=== PATIENT | female | born 1940 | race Caucasian/White ===

== ENCOUNTER 2018-10-26 09:58 | Emergency (ER) | payer MEDICARE, MEDICAID ==
[~2018-10-26] VITALS: Ht 167.6 cm; Wt 49.9 kg
[2018-10-26] MEDS ORDERED: NS IV 1000 ML 1,000 ML IV SCH (10:03)
--- NOTE | 2018-10-26 10:10 | ED General ---
General Stated Complaint: NAUSEA; VOMITING Source of Information: Patient Exam Limitations: Other (nonverbal at baseline) History of Present Illness Date Seen by Provider: Oct 26, 2018 Time Seen by Provider: 09:55 Initial Comments Patient presents to ER by EMS from [facility] with chief complaint of cough nausea vomiting times one day. She's been on Levaquin for a couple days for a UTI outpatient. No known fevers or chills. She is nonverbal baseline. Takes her medications mostly for psych. EMS gave her Zofran on started an IV and started some fluids. Her blood pressure was soft in the 100 systolic range. Oxygen sats in the upper 90s on room air. No history of diabetes. The patient does answer, "No," when asked if her belly is tender on direct palpation. The recommendation accompanies her also indicates that she has been ordered and DuoNeb's twice a day and Robitussin for cough. Allergies and Home Medications Allergies Coded Allergies: No Known Drug Allergies (Unverified , 10/26/18) Patient Home Medication List Home Medication List Reviewed: Yes Review of Systems Review of Systems Constitutional: see HPI (review of systems Limited to staff and EMS report as the patient does not answer many questions.); No chills, No fever EENTM: No nose congestion, No throat pain Respiratory: cough, phlegm, wheezing Cardiovascular: No edema, No Hx of Intervention Gastrointestinal: No constipation, No diarrhea; nausea, vomiting Musculoskeletal: No back pain, No joint pain Skin: No pruritus, No rash Past Qqhfqkx-Zktxel-Wzwyna Hx Patient Social History Alcohol Use: Denies Use Recreational Drug Use: No Smoking Status: Never a Smoker Physical Exam-Suspected Sepsis Physical Exam Vital Signs Vital Signs - First Documented 10/26/18 10:00 Temp 98.5 Pulse 92 Resp 14 B/P (MAP) 99/57 (71) Pulse Ox 97 O2 Delivery Room Air Capillary Refill : Height, Weight, BMI Height: '" Weight: lbs. oz. kg; BMI Method: General Appearance: No Apparent Distress, Thin Eyes: Bilateral Eye Normal Inspection, Bilateral Eye PERRL, Bilateral Eye EOMI HEENT: PERRL/EOMI, TMs Normal, Normal ENT Inspection, Pharynx Normal; No Moist Mucous Membranes Neck: Full Range of Motion, Normal Inspection, Non Tender, Supple Respiratory: No Accessory Muscle Use, No Respiratory Distress, Rales (few bilateral bases), Wheezing (few expiratory) Cardiovascular: Regular Rate, Rhythm, No Edema, Normal Peripheral Pulses Gastrointestinal: Normal Bowel Sounds, No Organomegaly, Non Tender, Soft Extremity: Normal Capillary Refill, Normal Inspection, No Pedal Edema Neurologic/Psychiatric: Alert, Oriented x3 Skin: normal color, warm/dry Focused Exam Sepsis Stage: Septic Shock Possible Source: Genitouriary Lactate Level 10/26/18 10:20: Lactic Acid Level 2.74*H 10/26/18 13:01: Lactic Acid Level 1.81 Time of Focused Exam: 13:44 Respiratory: Chest Non Tender, Lungs Clear, Normal Breath Sounds, No Accessory Muscle Use, No Respiratory Distress Cardiovascular: Regular Rate, Rhythm, No Edema, Normal Peripheral Pulses Capillary Refill: Less Than 3 Seconds Peripheral Pulses: 2+ Radial Pulses (R), 2+ Radial Pulses (L) Skin: normal color, warm/dry Lactic Acid Level Laboratory Tests Test 10/26/18 13:01 Lactic Acid Level 1.81 MMOL/L (0.50-2.00) Within 3hrs of presentation: Admin fluids, Admin ABX, Blood cultures prior to ABX's, Focus exam, Lactate level, Vasopressin therapy (order been started) Procedures/Interventions Lumen: triple Central Line Procedure: betadine prep (chlorhexidine prep), sterile drapes applied, sterile dressing applied Position: internal jugular (R) Anesthesia: Lidocaine Volume Anesthetic (ccs): 3 Complications: none Post Position: sutured, good blood return, position confirmed w/ CXR Risks, benefits and alternatives were explained to the nephew and the patient. We are given the go ahead so we looked at the neck found a good site on her right IJ. 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 We used usual sterile fashion and put the introducer needle into her right IJ on first attempt but were unable after a few attempts to pass the guidewire so we withdrew the needle reposition the patient and on second attempt were able to pass the guidewire easily. We did cause some ventricular ectopy so we backed guidewire off 3 cm and the ectopy went away. We made a small sherley in the skin using 11 blade scalpel provided and then removed the needle. We then passed the dilator and removed it from the guidewire. We then placed the central lumen of the already flushed triple lumen catheter over and stitched down in place at about 12.5 cm. We had good blood return and flushed easily. We then placed a Biopatch and sterile dressing. Patient tolerated the procedure well. Progress/Results/Core Measures Suspected Sepsis SIRS Temperature: Pulse: Respiratory Rate: Laboratory Tests 10/26/18 10:20: White Blood Count 6.8 Blood Pressure / Mean: 10/26/18 10:20: Lactic Acid Level 2.74*H 10/26/18 13:01: Lactic Acid Level 1.81 Laboratory Tests 10/26/18 10:20: Creatinine 1.46H, INR Comment 1.0, Platelet Count 257, Total Bilirubin 0.3 Results/Orders Lab Results Laboratory Tests Test 10/26/18 10:20 10/26/18 11:50 10/26/18 13:01 Range/Units White Blood Count 6.8 4.3-11.0 10^3/uL Red Blood Count 3.69 L 4.35-5.85 10^6/uL Hemoglobin 10.8 L 11.5-16.0 G/DL Hematocrit 34 L 35-52 % Mean Corpuscular Volume 91 80-99 FL Mean Corpuscular Hemoglobin 29 25-34 PG Mean Corpuscular Hemoglobin Concent 32 32-36 G/DL Red Cell Distribution Width 14.1 10.0-14.5 % Platelet Count 257 130-400 10^3/uL Mean Platelet Volume 10.3 7.4-10.4 FL Neutrophils (%) (Auto) 70 42-75 % Lymphocytes (%) (Auto) 23 12-44 % Monocytes (%) (Auto) 5 0-12 % Eosinophils (%) (Auto) 1 0-10 % Basophils (%) (Auto) 0 0-10 % Neutrophils # (Auto) 4.8 1.8-7.8 X 10^3 Lymphocytes # (Auto) 1.6 1.0-4.0 X 10^3 Monocytes # (Auto) 0.3 0.0-1.0 X 10^3 Eosinophils # (Auto) 0.1 0.0-0.3 10^3/uL Basophils # (Auto) 0.0 0.0-0.1 10^3/uL Prothrombin Time 12.8 12.2-14.7 SEC INR Comment 1.0 0.8-1.4 Activated Partial Thromboplast Time 30 24-35 SEC Sodium Level 142 135-145 MMOL/L Potassium Level 4.3 3.6-5.0 MMOL/L Chloride Level 102 98-107 MMOL/L Carbon Dioxide Level 26 21-32 MMOL/L Anion Gap 14 5-14 MMOL/L Blood Urea Nitrogen 20 H 7-18 MG/DL Creatinine 1.46 H 0.60-1.30 MG/DL Estimat Glomerular Filtration Rate 35 BUN/Creatinine Ratio 14 Glucose Level 110 H 70-105 MG/DL Lactic Acid Level 2.74 *H 1.81 0.50-2.00 MMOL/L Calcium Level 8.8 8.5-10.1 MG/DL Corrected Calcium 9.3 8.5-10.1 MG/DL Total Bilirubin 0.3 0.1-1.0 MG/DL Aspartate Amino Transf (AST/SGOT) 17 5-34 U/L Alanine Aminotransferase (ALT/SGPT) 14 0-55 U/L Alkaline Phosphatase 68 40-136 U/L Total Protein 6.9 6.4-8.2 GM/DL Albumin 3.4 3.2-4.5 GM/DL Urine Color YELLOW Urine Clarity SL CLOUDY Urine pH 6.5 5-9 Urine Specific [place] <=1.005 1.016-1.022 Urine Protein TRACE NEGATIVE Urine Glucose (UA) NEGATIVE NEGATIVE Urine Ketones NEGATIVE NEGATIVE Urine Nitrite NEGATIVE NEGATIVE Urine Bilirubin NEGATIVE NEGATIVE Urine Urobilinogen 0.2 NORMAL MG/DL Urine Leukocyte Esterase 3+ H NEGATIVE Urine RBC (Auto) TRACE H NEGATIVE Urine RBC 0-2 /HPF Urine WBC >100 H /HPF Urine Squamous Epithelial Cells 2-5 /HPF Urine Crystals NONE /LPF Urine Bacteria TRACE /HPF Urine Casts NONE /LPF Urine Mucus NONE /LPF Urine Culture Indicated NO Micro Results Microbiology 10/26/18 Influenza Types A,B Antigen (OREN) - Final, Complete My Orders Orders - RADHA MAYNARD Cbc With Automated Diff (10/26/18 10:03) Comprehensive Metabolic Panel (10/26/18 10:03) Blood Culture (10/26/18 10:03) Sputum Culture (10/26/18 10:03) Urinalysis (10/26/18 10:03) Urine Culture (10/26/18 10:03) Protime With Inr (10/26/18 10:03) Partial Thromboplastin Time (10/26/18 10:03) Chest 1 View Ap/Pa Only (10/26/18 10:03) Saline Lock/Iv-Start (10/26/18 10:03) Saline Lock/Iv-Start (10/26/18 10:03) Vital Signs Adult Sepsis Patie Q15M (10/26/18 10:03) O2 (10/26/18 10:03) Remove Rings In Anticipation O (10/26/18 10:03) Lactic Acid Analyzer (10/26/18 10:03) Ns Iv 1000 Ml (Sodium Chloride 0.9%) (10/26/18 10:03) Cefepime Injection (Maxipime Injection) (10/26/18 10:15) Saline Lock/Iv-Start (10/26/18 10:03) Influenza A And B Antigens (10/26/18 10:03) Albuterol/Ipra Inhalation Soln (Duoneb I (10/26/18 10:15) Svn Small Volume Nebulizer (10/26/18 10:10) Straight Cath For Spec.-Adult (10/26/18 11:45) Norepinephrine (Levophed) (10/26/18 12:15) Chest 1 View Ap/Pa Only (10/26/18 12:01) Lactated Ringers (Lr 1000 Ml Iv Solution (10/26/18 13:49) C Difficile Ag + Toxin A/B. (10/26/18 14:27) Isolation Central Supply Req (10/26/18 14:27) Medications Given in ED Current Medications Medications Dose Ordered Sig/Susan Route Start Time Stop Time Status Last Admin Dose Admin Albuterol/ Ipratropium 3 ml ONCE ONCE INH 10/26/18 10:15 10/26/18 10:16 DC 10/26/18 10:42 3 ML Cefepime HCl 1000 mg/Sterile Water 10 ml @ 200 mls/hr ONCE ONCE IV 10/26/18 10:15 10/26/18 10:17 DC 10/26/18 10:42 200 MLS/HR Vital Signs/I&O 10/26/18 10:00 Temp 98.5 Pulse 92 Resp 14 B/P (MAP) 99/57 (71) Pulse Ox 97 O2 Delivery Room Air Capillary Refill : Progress Note #1: Time: 10:09 Progress Note Soft blood pressure with a map of 67, heart rate above 90 recently being treated for UTI. Plan to do a septic workup and give a dose of cefepime. We'll also give her a DuoNeb and reassess her lungs after a chest x-ray. Progress Note #2: Time: 12:00 Progress Note The patient's blood pressure has become very soft with a map going down to 60 so we put her in Trendelenburg and given her maximal 30 mL/kg of fluids will continue these fluids at 150 an hour and put a central line in to do pressors with. We discussed the case with a nephew who is the D POA and he would like us to do everything including central lines or intubation up to the point of DO NOT RESUSCITATE if she has a cardiac arrest. He would also like the patient sent to [place] because she has a sister who lives there would be able to help visit and take care of her afterwards. Patient is had multiple alarms her V. tach at 100 bpm but they've all been reviewed and none of them actually demonstrated V. tach. Progress Note #3: Time: 14:37 Progress Note Initially the patient had 2 loose stools and so our plan was to get a C. difficile tox on the next one since she had been on Levaquin outpatient for about 5-7 days. Her third stool had a large impacted hard bowel movement in the middle of it and staff at the facility her marked she's been constipated lately. She does have MiraLAX on her order sheet when necessary. Since the stool is formed and hard I do not suspect that this is C. difficile colitis. She has no elevated white count, abdominal tenderness to palpation or fever currently. Diagnostic Imaging Diagonstic Imaging: Xray Plain Films/CT/US/NM/MRI: chest (1v) Comments [facility] [place] [place] NAME: WAQAR STRICKLAND [facility] REC#: [id number] PT STATUS: REG ER : 1940 PHYSICIAN: RADHA MAYNARD MD ADMIT DATE: 10/26/18/ER FS Draft Date of Exam:10/26/18 CHEST 1 VIEW AP/PA ONLY INDICATION: Nausea and vomiting. Time of exam 9:16 AM No prior studies are available for comparison. The heart size is normal. The pulmonary vascularity is unremarkable. The lungs are clear. No infiltrate, effusion or pneumothorax is detected. Impression: No acute cardiopulmonary process is detected. Dictated on workstation # [id number] Dict: 10/26/18 1025 Trans: 10/26/18 1025 FIDENCIO [id number] Interpreted by: ALEJO DOMINGUEZ MD Electronically signed by: Reviewed: Reviewed by Me Diagonstic Imaging: Xray Plain Films/CT/US/NM/MRI: chest (1v) Comments NAME: WAQAR [facility]NAD [facility] REC#: [id number] PT STATUS: REG ER : 1940 PHYSICIAN: RADHA MAYNARD MD ADMIT DATE: 10/26/18/ER FS Signed Date of Exam:10/26/18 CHEST 1 VIEW AP/PA ONLY Indication: Central line placement Portable chest 11:42 AM Right jugular central line tip projects over the right innominate vein. Heart size and pulmonary vascular normal. Lungs are clear. There are no effusions or pneumothoraces. Impression: No acute abnormalities in the chest. Dictated by: Dictated on workstation # [id number] Dict: 10/26/18 1308 Trans: 10/26/18 1309 TB [id number] Interpreted by: RACHNA MCCLOUD MD Electronically signed by: RACHNA MCCLOUD MD 10/26/18 1309 Reviewed: Reviewed by Me Critical Care Note Critical Care Start Time: 13:15 Stop Time: 13:45 Total Time (minutes) 30 mins Progress Reviewed her labs and repeat examination. Her breath sounds are better after a DuoNeb but her heart rate is still up around 100 and her blood pressure was dropping where her map was 58. We ordered Levophed to be started peripherally and start a central line after discussing with the nephew who is the D POA who lives in [place]. He does want us to go ahead and pursue everything and would like us to send her to [facility] were her family is. We get a chest x-ray after the central line but unfortunately the positioning was poor so we repeated it and then could see good placement of central line shadow over the superior vena cava. Radiologist agreed. Before Levophed could be started however the patient's blood pressure improved just by putting her in Trendelenburg so we'll keep some IV fluids going at 100 cc an hour. Departure Impression Primary Impression: UTI (urinary tract infection) Qualified Codes: N30.00 - Acute cystitis without hematuria Additional Impression: Septic shock Disposition: XFER SHT-TRM HOSP Condition: Stable Transfer Time Spoke to Accepting Phy: 13:50 Transfer Progress Notes 1335: Called [facility] and discussed with 1- call and they will page Dr. Mcknight. Transfer Facility: [place], [place] Method of Transfer: EMS Copy Copies To 1: SELF,RADHA LOYA MD Oct 26, 2018 10:10
[2018-10-26] MEDS ORDERED: RT-ALBUTEROL/IPRATROPIUM 3 ML (DUONEB) VIAL INH ONE (10:15)
[2018-10-26] MEDS ORDERED: CEFEPIME INJECTION 1,000 MG in WATER (STERILE) FOR INJECTION 10 ML IV ONE (10:15)
--- NOTE | 2018-10-26 10:26 | Diagnostic Imaging Report ---
INDICATION: Nausea and vomiting. Time of exam 9:16 AM No prior studies are available for comparison. The heart size is normal. The pulmonary vascularity is unremarkable. The lungs are clear. No infiltrate, effusion or pneumothorax is detected. Impression: No acute cardiopulmonary process is detected. Dictated by: Dictated on workstation # [id number]
[2018-10-26 10:40] LABS: HEMATOCRIT 34 % (35-52); HEMOGLOBIN 10.8 G/DL (11.5-16.0); MEAN CORPUSCULAR HEMOGLOBIN 29 PG (25-34); MEAN CORPUSCULAR VOLUME 91 FL (80-99); WHITE BLOOD COUNT 6.8 10^3/uL (4.3-11.0)
[2018-10-26 10:41] LABS: BASOPHILS % (AUTO) 0 % (0-10); EOSINOPHILS # (AUTO) 0.1 10^3/uL (0.0-0.3); EOSINOPHILS % (AUTO) 1 % (0-10); LYMPHOCYTES # (AUTO) 1.6 X 10^3 (1.0-4.0); LYMPHOCYTES % (AUTO) 23 % (12-44); MEAN CORPUSCULAR HGB CONC 32 G/DL (32-36); MEAN PLATELET VOLUME 10.3 FL (7.4-10.4); MONOCYTES # (AUTO) 0.3 X 10^3 (0.0-1.0); MONOCYTES % (AUTO) 5 % (0-12); NEUTROPHILS # (AUTO) 4.8 X 10^3 (1.8-7.8); NEUTROPHILS % (AUTO) 70 % (42-75); PLATELET COUNT 257 10^3/uL (130-400); RED CELL DISTRIBUTION WIDTH 14.1 % (10.0-14.5)
[2018-10-26 10:56] LABS: PROTHROMBIN TIME PATIENT 12.8 SEC (12.2-14.7)
[2018-10-26 11:05] LABS: BILIRUBIN,TOTAL 0.3 MG/DL (0.1-1.0); CALCIUM 8.8 MG/DL (8.5-10.1); CREATININE SERUM 1.46 MG/DL (0.60-1.30); POTASSIUM 4.3 MMOL/L (3.6-5.0); TOTAL PROTEIN 6.9 GM/DL (6.4-8.2)
[2018-10-26 11:06] LABS: ALBUMIN 3.4 GM/DL (3.2-4.5)
[2018-10-26 12:08] LABS: BILIRUBIN,URINE NEGATIVE (NEGATIVE); CLARITY,URINE SL CLOUDY; COLOR,URINE YELLOW; GLUCOSE, URINE (UA) NEGATIVE (NEGATIVE); KETONES,URINE NEGATIVE (NEGATIVE); NITRITE,URINE NEGATIVE (NEGATIVE); PH,URINE 6.5 (5-9); PROTEIN,URINE TRACE (NEGATIVE); UROBILINOGEN,URINE 0.2 MG/DL (NORMAL)
[2018-10-26 12:09] LABS: BACTERIA,URINE TRACE /HPF; LEUKOCYTE ESTERASE ,URINE 3+ (NEGATIVE); RBC,URINE 0-2 /HPF; WBC,URINE >100 /HPF
[2018-10-26] MEDS ORDERED: NOREPINEPHRINE 4 MG in NS (IVPB) 250 ML IV SCH (12:15)
--- NOTE | 2018-10-26 13:11 | Diagnostic Imaging Report ---
Indication: Central line placement Portable chest 11:42 AM Right jugular central line tip projects over the right innominate vein. Heart size and pulmonary vascular normal. Lungs are clear. There are no effusions or pneumothoraces. Impression: No acute abnormalities in the chest. Dictated by: Dictated on workstation # [id number]
[2018-10-26] MEDS ORDERED: LACTATED RINGERS 1,000 ML IV STA (13:49)
[2018-10-26 16:45] VITALS: BP 123/82
== END 2018-10-26 16:45 | disposition short-term general hospital (02) ==
LOC: EDUNIT# 09:58 → ER FS 10:02
DX: N39.0 Urinary tract infection, site not specified (principal); A41.9 Sepsis, unspecified organism; R65.21 Severe sepsis with septic shock
CPT/HCPCS: 36415; 51701; 71045; 80053; 81000; 83605; 85025; 85610; 85730; 87040; 87088; 87804; 96361; 96365

== ENCOUNTER 2019-08-10 08:49 | Emergency (ER) | payer MEDICARE, MEDICAID ==
[~2019-08-10] VITALS: Ht 157 cm; Wt 37.0 kg
--- NOTE | 2019-08-10 09:12 | ED General ---
General Chief Complaint: Respiratory Problems Stated Complaint: VOMITING History of Present Illness Date Seen by Provider: Aug 10, 2019 Time Seen by Provider: 09:07 Initial Comments 79 yo female brought from nursing facility pt is severely debilitated dementia non-verbal DNR seen here last year with had sepsis UTI report today is several hours of vomiting and low O2 sats noted this AM hx very limited Allergies and Home Medications Allergies Coded Allergies: No Known Drug Allergies (Unverified , 10/26/18) Patient Home Medication List Home Medication List Reviewed: Yes Review of Systems Review of Systems Constitutional: no symptoms reported EENTM: no symptoms reported Respiratory: short of breath (low sats at NH) Cardiovascular: no symptoms reported Gastrointestinal: abdominal pain, nausea, vomiting : No Past Dobhghb-Wjiazj-Kjwcrw Hx Patient Social History 2nd Hand Smoke Exposure: No Recent Foreign Travel: Yes Recent Hopitalizations: No Seasonal Allergies Seasonal Allergies: No Past Medical History Surgeries: No Respiratory: No Cardiac: No Neurological: Yes (non-verbal) Genitourinary: No Gastrointestinal: No Musculoskeletal: Yes (bed bound) Endocrine: No HEENT: No Cancer: No Psychosocial: No Integumentary: No Blood Disorders: No Physical Exam Vital Signs Vital Signs - First Documented 08/10/19 08/10/19 08:49 08:50 Temp 37.2 Pulse 116 Resp 22 B/P (MAP) 153/92 (112) Pulse Ox 91 O2 Delivery Room Air O2 Flow Rate 4.00 FiO2 94 Capillary Refill : Height, Weight, BMI Height: 5'6.00" Weight: 110lbs. oz. 49.841417je; BMI Method:Estimated General Appearance: No Apparent Distress Eyes: Bilateral Eye PERRL, Bilateral Eye EOMI HEENT: Other (tongue dry) Respiratory: Lungs Clear Cardiovascular: Regular Rate, Rhythm Gastrointestinal: Tenderness, Other (abd bloated and tight) Rectal: Other (no fecal impaction) Back: Other (no open skin ulceration) Extremity: No Pedal Edema Neurologic/Psychiatric: Alert, No Motor/Sensory Deficits, answering service agent II-XII Norm as Tested Focused Exam Lactate Level 08/10/19 08:50: Lactic Acid Level 4.30*H Lactic Acid Level Laboratory Tests Test 08/10/19 08:50 Lactic Acid Level 4.30 MMOL/L (0.50-2.00) *H Progress/Results/Core Measures Suspected Sepsis SIRS Temperature: Pulse: Respiratory Rate: Laboratory Tests 08/10/19 08:50: White Blood Count 6.2 Blood Pressure / Mean: 08/10/19 08:50: Lactic Acid Level 4.30*H Laboratory Tests 08/10/19 08:50: Creatinine 1.79H, Platelet Count 299, Total Bilirubin 0.6 Results/Orders Lab Results Laboratory Tests Test 08/10/19 08:50 08/10/19 09:40 Range/Units White Blood Count 6.2 4.3-11.0 10^3/uL Red Blood Count 3.52 L 4.35-5.85 10^6/uL Hemoglobin 11.0 L 11.5-16.0 G/DL Hematocrit 33 L 35-52 % Mean Corpuscular Volume 95 80-99 FL Mean Corpuscular Hemoglobin 31 25-34 PG Mean Corpuscular Hemoglobin Concent 33 32-36 G/DL Red Cell Distribution Width 12.0 10.0-14.5 % Platelet Count 299 130-400 10^3/uL Mean Platelet Volume 10.9 H 7.4-10.4 FL Neutrophils (%) (Auto) 87 H 42-75 % Lymphocytes (%) (Auto) 5 L 12-44 % Monocytes (%) (Auto) 7 0-12 % Eosinophils (%) (Auto) 0 0-10 % Basophils (%) (Auto) 0 0-10 % Neutrophils # (Auto) 5.4 1.8-7.8 X 10^3 Lymphocytes # (Auto) 0.3 L 1.0-4.0 X 10^3 Monocytes # (Auto) 0.4 0.0-1.0 X 10^3 Eosinophils # (Auto) 0.0 0.0-0.3 10^3/uL Basophils # (Auto) 0.0 0.0-0.1 10^3/uL Sodium Level 146 H 135-145 MMOL/L Potassium Level 3.6 3.6-5.0 MMOL/L Chloride Level 97 L 98-107 MMOL/L Carbon Dioxide Level 28 21-32 MMOL/L Anion Gap 21 H 5-14 MMOL/L Blood Urea Nitrogen 73 H 7-18 MG/DL Creatinine 1.79 H 0.60-1.30 MG/DL Estimat Glomerular Filtration Rate 27 BUN/Creatinine Ratio 41 Glucose Level 188 H 70-105 MG/DL Lactic Acid Level 4.30 *H 0.50-2.00 MMOL/L Calcium Level 9.5 8.5-10.1 MG/DL Corrected Calcium 9.5 8.5-10.1 MG/DL Total Bilirubin 0.6 0.1-1.0 MG/DL Aspartate Amino Transf (AST/SGOT) 70 H 5-34 U/L Alanine Aminotransferase (ALT/SGPT) 100 H 0-55 U/L Alkaline Phosphatase 78 40-136 U/L Troponin I < 0.30 <0.30 NG/ML Total Protein 7.7 6.4-8.2 GM/DL Albumin 4.0 3.2-4.5 GM/DL Urine Color YELLOW Urine Clarity CLOUDY Urine pH 5.5 5-9 Urine Specific [place] >1.030 1.016-1.022 Urine Protein 2+ H NEGATIVE Urine Glucose (UA) NEGATIVE NEGATIVE Urine Ketones NEGATIVE NEGATIVE Urine Nitrite NEGATIVE NEGATIVE Urine Bilirubin 1+ H NEGATIVE Urine Urobilinogen 0.2 < = 1.0 MG/DL Urine Leukocyte Esterase 2+ H NEGATIVE Urine RBC (Auto) 3+ H NEGATIVE Urine RBC TNTC H /HPF Urine WBC NONE /HPF Urine Crystals NONE /LPF Urine Bacteria LARGE H /HPF Urine Casts NONE /LPF Urine Mucus NEGATIVE /LPF Urine Culture Indicated CULTURE PENDING Micro Results Microbiology My Orders Orders - KEYA ERAZO MD Iv Maintain (Order) (08/10/19 09:18) Bassett Cath (08/10/19 09:18) Ns Iv 1000 Ml (Sodium Chloride 0.9%) (08/10/19 09:30) Machine Cell Tuber (08/10/19 09:18) Blood Culture (08/10/19 09:18) Ekg Tracing (08/10/19 09:24) Abdomen Flat & Upright/Decub (08/10/19 09:38) Urine Culture (08/10/19 09:45) Ciprofloxacin Iv 400mg/200ml (Cipro Iv S (08/10/19 09:45) Vital Signs Adult Sepsis Patie Q15M (08/10/19 09:47) Ondansetron Injection (Zofran Injectio (08/10/19 10:00) O2 (08/10/19 09:47) Ns Iv 1000 Ml (Sodium Chloride 0.9%) (08/10/19 09:47) Cefepime Injection (Maxipime Injection) (08/10/19 10:00) Ng Tube Insert & Assessment (08/10/19 10:11) Ekg Tracing (08/10/19 10:40) Comprehensive Metabolic Panel (08/10/19 08:50) Troponin I Fs (08/10/19 08:50) Blood Culture (08/10/19 08:50) Urinalysis (08/10/19 09:40) Cbc With Automated Diff (08/10/19 08:50) Manual Differential (08/10/19 08:50) Lactic Acid Analyzer (08/10/19 08:50) Medications Given in ED Current Medications Medications Dose Ordered Sig/Susan Route Start Time Stop Time Status Last Admin Dose Admin Cefepime HCl 1000 mg/Sterile Water 10 ml @ 200 mls/hr ONCE ONCE IV 08/10/19 10:00 08/10/19 10:02 DC 08/10/19 10:13 200 MLS/HR Ciprofloxacin/ Dextrose 200 ml @ 200 mls/hr ONCE ONCE IV 08/10/19 09:45 08/10/19 10:44 DC 08/10/19 10:13 200 MLS/HR Ondansetron HCl 4 mg PRN PRN IV 08/10/19 10:00 08/10/19 10:14 DC 08/10/19 10:13 4 MG Vital Signs/I&O 08/10/19 08/10/19 08:49 08:50 Temp 37.2 Pulse 116 Resp 22 B/P (MAP) 153/92 (112) Pulse Ox 91 94 O2 Delivery Room Air Nasal Cannula O2 Flow Rate 4.00 FiO2 94 Capillary Refill : Progress Note : Progress Note pt stable VS's abd distended and firm films show marked small bowel distension NG ordered CXR possible left basilar infiltrate urine is brown opaque UA ++for infection cultures of blood and urine ordered Cefipime and Cipro ordered Hb 11 WBC 6,200 lactate 4.3 giving IV fluids aggressively BUN/creat 73/1.8 AG 21 EKG sinus tach @ [address] changes assess - UTI severe ileus vs bowel obst possible LLL infiltrate family requests pt transfer to [place] call placed to transfer line [place] discussed with hospitalist Dr. Francisco Javier Bui, agrees to accept Departure Impression Primary Impression: Urinary tract infection Qualified Codes: N30.01 - Acute cystitis with hematuria Additional Impression: Bowel obstruction Qualified Codes: K56.609 - Unspecified intestinal obstruction, unspecified as to partial versus complete obstruction Disposition: 02 XFER SHT-TRM HOSP Condition: Improved Transfer Transfer Reason: Patient preference (family requests transfer to [place]) Time Spoke to Accepting Phy: 11:12 Transfer Progress Notes see progress note Transfer Time: 11:13 Transfer Facility: [facility] Method of Transfer: EMS Departure-Patient Inst. Referrals: NO,LOCAL PHYSICIAN (PCP/Family) Primary Care Physician KEYA ERAZO MD Aug 10, 2019 09:12
[2019-08-10 09:17] LABS: WHITE BLOOD COUNT 6.2 10^3/uL (4.3-11.0)
[2019-08-10 09:18] LABS: BASOPHILS % (AUTO) 0 % (0-10); EOSINOPHILS % (AUTO) 0 % (0-10); HEMATOCRIT 33 % (35-52); LYMPHOCYTES # (AUTO) 0.3 X 10^3 (1.0-4.0); LYMPHOCYTES % (AUTO) 5 % (12-44); MEAN CORPUSCULAR HEMOGLOBIN 31 PG (25-34); MEAN CORPUSCULAR HGB CONC 33 G/DL (32-36); MEAN CORPUSCULAR VOLUME 95 FL (80-99); MEAN PLATELET VOLUME 10.9 FL (7.4-10.4); MONOCYTES # (AUTO) 0.4 X 10^3 (0.0-1.0); MONOCYTES % (AUTO) 7 % (0-12); NEUTROPHILS # (AUTO) 5.4 X 10^3 (1.8-7.8); NEUTROPHILS % (AUTO) 87 % (42-75); PLATELET COUNT 299 10^3/uL (130-400)
[2019-08-10 09:27] LABS: ALANINE AMINOTRANSFERASE 100 U/L (0-55); ALKALINE PHOSPHATASE 78 U/L (40-136); BILIRUBIN,TOTAL 0.6 MG/DL (0.1-1.0); BUN/CREATININE RATIO 41; CALCIUM 9.5 MG/DL (8.5-10.1); CARBON DIOXIDE 28 MMOL/L (21-32); CHLORIDE 97 MMOL/L (98-107); CREATININE SERUM 1.79 MG/DL (0.60-1.30); GFR ESTIMATED 27; GLUCOSE 188 MG/DL (70-105); POTASSIUM 3.6 MMOL/L (3.6-5.0); SODIUM 146 MMOL/L (135-145); TOTAL PROTEIN 7.7 GM/DL (6.4-8.2)
[2019-08-10] MEDS ORDERED: NS IV 1000 ML 1,000 ML IV SCH ×2 (09:30)
--- NOTE | 2019-08-10 09:33 | NUR ---
ATTEMPTED TO SUCTION PT AND SHE PROJECTILE VOMITED BROWN EMESIS.
[2019-08-10] MEDS ORDERED: CIPROFLOXACIN IV 400MG/200ML 200 ML IV ONE (09:45)
[2019-08-10] MEDS ORDERED: CEFEPIME INJECTION 1,000 MG in WATER (STERILE) FOR INJECTION 10 ML IV ONE (10:00)
[2019-08-10] MEDS ORDERED: ONDANSETRON 4 MG/2 ML (SDV) Z0FRAN IV PRN (10:00)
[2019-08-10 10:02] LABS: BILIRUBIN,URINE 1+ (NEGATIVE); CLARITY,URINE CLOUDY; COLOR,URINE YELLOW; GLUCOSE, URINE (UA) NEGATIVE (NEGATIVE); KETONES,URINE NEGATIVE (NEGATIVE); NITRITE,URINE NEGATIVE (NEGATIVE); PH,URINE 5.5 (5-9); PROTEIN,URINE 2+ (NEGATIVE)
[2019-08-10 10:03] LABS: BACTERIA,URINE LARGE /HPF; LEUKOCYTE ESTERASE ,URINE 2+ (NEGATIVE); RBC,URINE TNTC /HPF
[2019-08-10] MEDS: NS IV 1000 ML 1,000 ML IV SCH ×2 (10:13→10:52)
--- NOTE | 2019-08-10 10:14 | Diagnostic Imaging Report ---
INDICATION: Abdominal distention. Nausea and vomiting. COMPARISON: None FINDINGS: Supine and upright frontal radiographic views of the abdomen were obtained. Left lateral decubitus view was also performed. There is moderate diffuse gaseous distention of the small bowel. At its largest, small bowel measures approximately 4.6 cm in diameter. Mild air and stool is also noted within the colon. There is no large collection of free intraperitoneal air. No unexpected radiopaque foreign bodies are seen. Included portions of the lung bases are clear. IMPRESSION: 1. Moderate diffuse gaseous distention of the small bowel concerning for obstruction. Dictated by: Dictated on workstation # [id number]
--- NOTE | 2019-08-10 10:28 | NUR ---
Spoke to [facility]. They provided nephew's (POA) Yamil Zaida phone numbers. and . She stated that they normally go to [facility]. Her sister lives near there.
--- NOTE | 2019-08-10 10:30 | NUR ---
This RN called Yamil (patient's nephew) and he wants her to go to [facility].
[2019-08-10 11:17] LABS: BAND NEUTROPHILS 40 %; BASOPHILS % (MANUAL) 2 %; EOSINOPHILS % (MANUAL) 0 %; LYMPHOCYTES % (MANUAL) 12 %; MONOCYTES % (MANUAL) 6 %; NEUTROPHILS % (MANUAL) 40 %; TOXIC GRANULATION/VACUOLAZATIO 2+
[2019-08-10 12:01] VITALS: BP 154/92
--- NOTE | 2019-08-14 14:03 | RADIOLOGY REPORT ---
NAME: WAQAR STRICKLAND [facility] REC#: [id number] PT STATUS: DEP ER : 1940 PHYSICIAN: KEYA ERAZO MD ADMIT DATE: 10/26/18/ER FS *CORRECTED* Signed Date of Exam:08/10/19 CHEST 1 VIEW AP/PA ONLY INDICATION: Vomiting and difficulty breathing. 8:49 AM Correlation is made with prior chest from 10/26/2018. There is some increased density in the left base suggestive of pneumonia. Right lung is clear. No effusion or pneumothorax is identified. IMPRESSION: Findings suggestive of patchy left basilar pneumonia. Dictated by: Dictated on workstation # [id number] Dict: 08/10/1918 Trans: 08/10/19 1540 CV [id number] Interpreted by: ALEJO DOMINGUEZ MD Electronically signed by: ALEJO DOMINGUEZ MD 08/10/19 1540 MTDD
== END 2019-08-10 12:38 | disposition short-term general hospital (02) ==
LOC: EDUNIT# 08:49 → ER FS 08:50
DX: N39.0 Urinary tract infection, site not specified (principal); K56.609 Unspecified intestinal obstruction, unspecified as to partial versus complete obstruction; F03.90 Unspecified dementia, unspecified severity, without behavioral disturbance, psychotic disturbance, mood disturbance, and anxiety
CPT/HCPCS: 36415; 51702; 71045; 74019; 80053; 81000; 83605; 84484; 85007; 85027; 87040; 87077; 87088; 96361; 96374; 96375